=== PATIENT | female | born 1960 | race Caucasian/White ===

== ENCOUNTER 2018-01-28 20:06 | Emergency (ER) | payer OTHER ==
[~2018-01-28] VITALS: Ht 172.7 cm; Wt 127.6 kg
[2018-01-28 21:51] LABS: HEMATOCRIT 43.1 % (36.0-46.0); HEMOGLOBIN 14.4 G/DL (11.9-15.5); MCH 29.2 PG (29.0-34.0); MCHC 33.4 G/DL (30.0-36.0); MCV 87.4 FL (83-99); PLATELET COUNT 146 K/uL (156-360); RBC DIS.WIDTH-CV 14.5 % (11.8-14.6); RBC DIS.WIDTH-SD 46.1 % (39-53); RED BLOOD COUNT 4.93 M/uL (3.80-5.20)
[2018-01-28] MEDS ORDERED: ULTRACET1 TABLET PO (21:55)
[2018-01-28 22:03] LABS: CHLORIDE 105 mEq/L (99-109); POTASSIUM 3.6 mEq/L (3.7-5.4); SODIUM 141 mEq/L (136-147)
[2018-01-28 22:04] LABS: GLUCOSE 95 mg/dL (70-99)
[2018-01-28 22:08] LABS: GFR ESTIMATE (CALCULATED) > 59 mL/min/
[2018-01-28 22:09] LABS: UREA NITROGEN (BUN) 13 mg/dL (9-23)
[2018-01-28 22:31] VITALS: BP 139/82
== END 2018-01-28 22:42 | disposition home or self-care (01) ==
LOC: EME 20:06
PROVIDERS: Physician Assistant
DX: M79.604 Pain in right leg (principal); M54.16 Radiculopathy, lumbar region; M79.89 Other specified soft tissue disorders; I25.2 Old myocardial infarction; Z95.1 Presence of aortocoronary bypass graft; Z95.5 Presence of coronary angioplasty implant and graft; Z86.718 Personal history of other venous thrombosis and embolism; Z79.02 Long term (current) use of antithrombotics/antiplatelets; Z79.82 Long term (current) use of aspirin; Z87.891 Personal history of nicotine dependence
CPT/HCPCS: 80048; 85027; 93971; 99281; 99284; J1885